=== PATIENT | female | born 1995 | race Caucasian/White ===

== ENCOUNTER 2018-08-18 22:51 | Emergency (ER) | payer MEDICAID ==
[~2018-08-18] VITALS: Ht 167.6 cm; Wt 84.0 kg
[2018-08-19 02:19] VITALS: BP 129/97
== END 2018-08-19 02:33 | disposition home or self-care (01) ==
LOC: ER 22:51
DX: B00.9 Herpesviral infection, unspecified (principal)
CPT/HCPCS: 99282; 99283